=== PATIENT | male | born 1995 | race Caucasian/White ===

== ENCOUNTER 2018-02-07 18:21 | Inpatient (IN) | payer OTHER ==
[~2018-02-07] VITALS: Ht 180.3 cm; Wt 83.0 kg
[~2018-02-07 18:21] MED LIST: ABILIFY10 MG PO; CLARITIN,ALAVAR10 MG PO; DEXILANT60 MG PO; LAMICTAL100 MG PO; LEXAPRO10 MG PO; PROTONIX40 MG PO; WELLBUTRIN SR150 MG PO
[2018-02-07 20:33] LABS: HEMATOCRIT 45.9 % (38.0-50.0); HEMOGLOBIN 16.6 G/DL (12.5-16.6); MCH 31.7 PG (29.0-34.0); MCHC 36.2 G/DL (30.0-36.0); MCV 87.8 FL (86-99); PLATELET COUNT 315 K/uL (156-360); RBC DIS.WIDTH-CV 11.9 % (11.8-14.6); RBC DIS.WIDTH-SD 38.6 % (39-53); RED BLOOD COUNT 5.23 M/uL (4.00-5.50); WHITE BLOOD COUNT 6.9 K/uL (4.1-10.2)
[2018-02-07 20:41] LABS: CHLORIDE 107 mEq/L (99-109); SODIUM 140 mEq/L (136-147)
[2018-02-07 20:43] LABS: GLUCOSE 88 mg/dL (70-99)
[2018-02-07 20:46] LABS: SERUM ETHYL ALCOHOL < 10 mg/dL
[2018-02-07 20:47] LABS: CREATININE 0.9 mg/dL (0.6-1.3); GFR ESTIMATE (CALCULATED) > 59 mL/min/ (58.99-99999)
[2018-02-07 20:48] LABS: UREA NITROGEN (BUN) 9 mg/dL (9-23)
[2018-02-07 21:48] LABS: AMPHETAMINE NEGATIVE (500 ng/mL); BARBITURATES NEGATIVE (200 ng/mL); BENZODIAZEPINES NEGATIVE (150 ng/mL); BUPRENORPHINE NEGATIVE (10 ng/mL); COCAINE NEGATIVE (150 ng/mL); METHADONE NEGATIVE (200 ng/mL); METHAMPHETAMINE NEGATIVE (500 ng/mL); OPIATES (MORPHINE) NEGATIVE (100 ng/mL); OXYCODONE NEGATIVE (100 ng/mL); PHENCYCLIDINE NEGATIVE (25 ng/mL); PROPOXYPHENE NEGATIVE (300 ng/mL); THC CANNABINOIDS NEGATIVE (50 ng/mL); TRICYCLIC ANTIDEPRESSANTS NEGATIVE (300 ng/mL)
[2018-02-07 23:14] VITALS: BP 132/69
[2018-02-07 23:15] VITALS: BP 132/69
[2018-02-08 07:46] VITALS: BP 113/60
[2018-02-08 16:06] VITALS: BP 123/64
[2018-02-09 07:33] VITALS: BP 118/65
[2018-02-09 15:57] VITALS: BP 111/55
[2018-02-10 07:54] VITALS: BP 130/68
[2018-02-10] MEDS ORDERED: ABILIFY10 MG PO (09:19)
[2018-02-10] MEDS ORDERED: WELLBUTRIN SR150 MG PO (09:19)
== END 2018-02-10 11:55 | disposition home or self-care (01) | DRG 885 ==
LOC: EME 18:21 → 1WEST 20:49 → EDOF 20:49 → ENRESERV 22:26 → 1WEST 23:09
DX: F33.2 Major depressive disorder, recurrent severe without psychotic features (principal); R45.851 Suicidal ideations
CPT/HCPCS: 80048; 85027; 90837; 97150 GO; 97165 GO; 99281; 99285; G0480; Q0177

== ENCOUNTER 2018-03-12 20:05 | Emergency (ER) | payer OTHER ==
[~2018-03-12] VITALS: Ht 177.8 cm; Wt 82.4 kg
[2018-03-12] MEDS ORDERED: VIGAMOX 0.60 DROP/3 RIGHT EYE (21:54)
[2018-03-12 22:09] VITALS: BP 152/90
== END 2018-03-12 22:10 | disposition home or self-care (01) ==
LOC: EME 20:05
DX: H57.11 Ocular pain, right eye (principal); Z88.0 Allergy status to penicillin
CPT/HCPCS: 99281; 99284